=== PATIENT | male | born 1990 | race Caucasian/White ===

== ENCOUNTER 2023-12-03 08:51 | Emergency (ER) | payer SELFPAY ==
[~2023-12-03] VITALS: Ht 185.4 cm; Wt 104.3 kg
[2023-12-03 09:15] VITALS: BP 116/98
[2023-12-03 09:31] VITALS: BP 131/79
[2023-12-03 09:46] VITALS: BP 115/79
[2023-12-03 11:11] VITALS: BP 131/79
== END 2023-12-03 11:29 | disposition home or self-care (01) | DRG 563 ==
LOC: ED 08:51
PROC: 2W3DX1Z Immobilization of Left Lower Arm using Splint (ICD-10-PCS; principal; 2023-12-03)
DX: S52.592A Other fractures of lower end of left radius, initial encounter for closed fracture (principal); S62.032A Displaced fracture of proximal third of navicular [scaphoid] bone of left wrist, initial encounter for closed fracture; V28.49XA Other motorcycle driver injured in noncollision transport accident in traffic accident, initial encounter